=== PATIENT | female | born 1955 | race Caucasian/White ===

== ENCOUNTER 2023-02-20 15:54 | Emergency (ER) | payer OTHER, MEDICARE, SELFPAY ==
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
[2023-02-20 16:16] VITALS: BP 152/96; PULSE 98; RESP 16; TEMP 37; O2SAT 99
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
[2023-02-20] MEDS: ACETAMINOPHEN 500 MG TABLET 1000 MG PO (18:07)
== END 2023-02-20 18:40 | disposition home or self-care (01) ==
PROVIDERS: Emergency Provider Physician Assistant
DX: M62.830 Muscle spasm of back (principal); V49.40XA Driver injured in collision with unspecified motor vehicles in traffic accident, initial encounter
CPT/HCPCS: 70450; 72125; 99284; A9270

== ENCOUNTER 2024-01-23 15:08 | Outpatient (CLI) | payer SELFPAY ==
--- NOTE | ~2024-01-23 | XR_ITS ---
EXAMINATION: XR chest 2V DATE: 01/23/2024 15:43 INDICATION: Temporary dental crown ingestion. TECHNIQUE: Frontal and lateral views of the chest were obtained. COMPARISON: None. FINDINGS: There is no pneumonia, pleural effusion, or pneumothorax. The heart size is normal. There a re surgical clips in left neck. IMPRESSION: 1. No radiopaque foreign body. Reviewed, dictated and finalized at location A. [employer]
== END 2024-01-23 15:09 | disposition home or self-care (01) ==
DX: T18.9XXA Foreign body of alimentary tract, part unspecified, initial encounter (principal); W44.8XXA Other foreign body entering into or through a natural orifice, initial encounter
CPT/HCPCS: 71046